=== PATIENT | female | born 1975 | race Two or more races ===

== ENCOUNTER 2022-01-20 19:59 | Emergency (ER) | payer MEDICAID ==
[~2022-01-20] VITALS: Ht 157.5 cm; Wt 70.3 kg
[2022-01-20] MEDS ORDERED: ASPirin 81 mg TAB PO ONE (20:30)
[2022-01-20 21:10] LABS: Basophils # (auto) 0 10 ^3/uL (0-0.2); Basophils % (auto) 0.6 % (0.0-2.0); Eosinophils # (auto) 0.1 10 ^3/uL (0-0.8); Eosinophils % (auto) 1.4 % (0.0-7.0); Hematocrit 35.3 % (36.0-46.0); Lymphocytes # (auto) 2.5 10 ^3/uL (0.4-5.4); Lymphocytes % (auto) 33.4 % (10.0-50.0); Mean Corpuscular Hemoglobin 28.7 pg (28.0-32.0); Mean Corpuscular Volume 84.4 fL (80.0-100.0); Monocytes # (auto) 0.3 10 ^3/uL (0-1.3); Monocytes % (auto) 4.5 % (0.0-12.0); Neutrophils # (auto) 4.6 10 ^3/uL (1.6-8.6); Neutrophils % (auto) 60.1 % (37.0-80.0); Nucleated Red Blood Cells % 0.1 %; Red Blood Cells 4.18 10^6/uL (4.0-5.20); Red Cell Distribution Width 13.8 % (11.8-14.3); White Blood Cell 7.6 10^3/uL (4.4-10.8)
[2022-01-20] MEDS ORDERED: KETOROLAC TROMETH 60MG/2ML VIAL IM ONE (21:30)
[2022-01-20 21:31] LABS: Albumin 3.7 g/dL (3.4-5.0); BUN/Creatinine Ratio 22.9; Calcium 8.3 mg/dL (8.5-10.1); Potassium 3.5 mmol/L (3.5-5.1)
[2022-01-20] MEDS ORDERED: IBU600T PO (21:33)
[2022-01-20 21:34] LABS: Bilirubin, Total 0.2 mg/dL (0.2-1.0); Total Protein 7.5 g/dL (6.4-8.2)
[2022-01-20 23:31] VITALS: BP 112/38
== END 2022-01-20 23:37 | disposition home or self-care (01) ==
LOC: ER 19:59
DX: M26.601 Right temporomandibular joint disorder, unspecified (principal); Z86.2 Personal history of diseases of the blood and blood-forming organs and certain disorders involving the immune mechanism; Z79.1 Long term (current) use of non-steroidal anti-inflammatories (NSAID); Z88.0 Allergy status to penicillin; Z88.2 Allergy status to sulfonamides
CPT/HCPCS: 36415; 70450; 80053; 84484; 85025; 93005; 96372; 99285; J1885

== ENCOUNTER 2022-04-05 06:26 | Emergency (ER) | payer MEDICAID ==
[~2022-04-05] VITALS: Ht 154.9 cm; Wt 68.1 kg
[~2022-04-05 06:26] MED LIST: IBU600T PO
[2022-04-05 07:59] VITALS: BP 120/61
[2022-04-05] MEDS ORDERED: IBUP600T27 PO (08:38)
[2022-04-05] MEDS ORDERED: AZIT500T66 PO (08:38)
== END 2022-04-05 08:43 | disposition home or self-care (01) ==
LOC: ER 06:26
DX: H61.22 Impacted cerumen, left ear (principal); H66.92 Otitis media, unspecified, left ear
CPT/HCPCS: 69209

== ENCOUNTER 2022-05-27 10:17 | Emergency (ER) | payer MEDICAID ==
[~2022-05-27] VITALS: Ht 162.6 cm; Wt 68.0 kg
[~2022-05-27 10:17] MED LIST changes: +AZIT500T66 PO; +IBUP600T27 PO
[2022-05-27] MEDS ORDERED: KETOROLAC TROMETH 60MG/2ML VIAL IM ONE (13:30)
[2022-05-27] MEDS ORDERED: CYCL-837 PO (15:54)
[2022-05-27] MEDS ORDERED: IBUP600T27 PO (15:54)
[2022-05-27 16:06] VITALS: BP 111/65
== END 2022-05-27 16:08 | disposition home or self-care (01) ==
LOC: ER 10:17
DX: S46.911A Strain of unspecified muscle, fascia and tendon at shoulder and upper arm level, right arm, initial encounter (principal); R68.84 Jaw pain; Z88.0 Allergy status to penicillin; Z88.2 Allergy status to sulfonamides; X58.XXXA Exposure to other specified factors, initial encounter; Y93.89 Activity, other specified; Y92.89 Other specified places as the place of occurrence of the external cause; Y99.8 Other external cause status
CPT/HCPCS: 70110; 73030; 73060; 81025; 96372; 99284; J1885